=== PATIENT | female | born 1945 | race Caucasian/White ===

== ENCOUNTER 2017-01-11 18:17 | Inpatient (IN) | payer MEDICARE, OTHER ==
[~2017-01-11] VITALS: Ht 163.8 cm; Wt 72.2 kg
[2017-01-11 21:39] LABS: BUN/CREATININE RATIO 20 (0-10)
[2017-01-11 22:02] LABS: HEMOGLOBIN 15.7 gm/dl (12.3-15.3); RED BLOOD COUNT 5.14 M/UL (4.00-5.10); WHITE BLOOD COUNT 4.8 K/UL (4.5-11.0)
[2017-01-12 09:17] LABS: HEMOGLOBIN 15.5 gm/dl (12.3-15.3); RED BLOOD COUNT 5.09 M/UL (4.00-5.10)
[2017-01-12 09:22] LABS: WHITE BLOOD COUNT 2.7 K/UL (4.5-11.0)
[2017-01-12] MEDS ORDERED: TESSALON PERLE100 MG PO (09:48)
[2017-01-12] MEDS ORDERED: PREDNISONE20 MG PO (09:49)
[2017-01-12] MEDS ORDERED: METHOTREXATE2.5 MG PO (09:50)
[2017-01-12] MEDS ORDERED: PROTONIX40 MG PO (17:10)
[2017-01-12] MEDS ORDERED: SPIRIVA18 MCG INH (17:11)
[2017-01-12] MEDS ORDERED: TENORMIN 25 MG25 MG PO (17:13)
[2017-01-12] MEDS ORDERED: VENTOLIN/PROVE0.5 ML INH (17:13)
[2017-01-12] MEDS ORDERED: PLAVIX 75 MG TA75 MG PO (17:13)
[2017-01-12] MEDS ORDERED: RANITIDINE HCL300 M1 PO (17:14)
[2017-01-12] MEDS ORDERED: SYNTHROID75 MCG PO (17:15)
[2017-01-12] MEDS ORDERED: CELEBREX 200MG200 MG PO (17:15)
[2017-01-12] MEDS ORDERED: VALIUM5 MG PO (17:18)
[2017-01-12] MEDS ORDERED: LOSARTAN POTASS50 MG PO (17:19)
[2017-01-12] MEDS ORDERED: VYTORIN 10-401 EACH PO (17:19)
[2017-01-12] MEDS ORDERED: AZELASTINE HCL6 ML OP (17:21)
[2017-01-12] MEDS ORDERED: COLON HERBAL C1 EACH PO (17:22)
[2017-01-12] MEDS ORDERED: NITROSTAT 0.40.4 MG SL (17:23)
[2017-01-12] MEDS ORDERED: PHENERGAN 25 MG25 M1 PO (17:24)
[2017-01-12] MEDS ORDERED: B-COMPLEX WIT400 MCG PO (17:25)
[2017-01-12] MEDS ORDERED: HYDROCHLOROTHIA25 MG PO (17:26)
[2017-01-13 07:14] LABS: HEMOGLOBIN 15.2 gm/dl (12.3-15.3); RED BLOOD COUNT 5.03 M/UL (4.00-5.10)
[2017-01-13 07:20] LABS: WHITE BLOOD COUNT 5.5 K/UL (4.5-11.0)
[2017-01-13 07:34] LABS: BUN/CREATININE RATIO 40 (0-10)
[2017-01-13] MEDS ORDERED: MEDROL DOSEPAK 24 MG PO (17:44)
[2017-01-13] MEDS ORDERED: BREO ELLIPTA 11 EACH INH (17:44)
== END 2017-01-13 18:15 | disposition home or self-care (01) | DRG 189 ==
LOC: ER1 18:17 → M/S 23:00 → ZEROF 23:00 → M/S 01-12 00:50
PROVIDERS: Internal Medicine; Student in an Organized Health Care Education/Training Program; ADMIT Internal Medicine
DX: J96.01 Acute respiratory failure with hypoxia (principal); J44.1 Chronic obstructive pulmonary disease with (acute) exacerbation; F17.210 Nicotine dependence, cigarettes, uncomplicated; I10 Essential (primary) hypertension; E78.5 Hyperlipidemia, unspecified; E03.9 Hypothyroidism, unspecified; Z91.14 Patient's other noncompliance with medication regimen; E53.8 Deficiency of other specified B group vitamins
CPT/HCPCS: ECHO; 36415; 71020; 80048; 80053; 82550; 82553; 82607; 82746; 83605; 83735; 83874; 83880; 84484; 85025; 85027; 87040; 93005; 93306; 94640; 94664; 96365; 96375; 99285; J1040; J1650; J1956; J2920; J2930; J7509